=== PATIENT | female | born 1995 | race African-American/Black ===

== ENCOUNTER 2022-06-26 18:12 | Emergency (ER) | payer OTHER ==
[~2022-06-26] VITALS: Ht 170.2 cm; Wt 77.1 kg
[2022-06-26 18:30] VITALS: BP 152/92; TEMP 98.6
== END 2022-06-26 19:10 | disposition left against medical advice (07) ==
LOC: ED 18:12
DX: S09.8XXA Other specified injuries of head, initial encounter (principal); S19.89XA Other specified injuries of other specified part of neck, initial encounter; X58.XXXA Exposure to other specified factors, initial encounter; Y92.89 Other specified places as the place of occurrence of the external cause; Z53.21 Procedure and treatment not carried out due to patient leaving prior to being seen by health care provider
CPT/HCPCS: 99282

== ENCOUNTER 2022-06-28 09:54 | Emergency (ER) | payer OTHER ==
[~2022-06-28] VITALS: Ht 170.2 cm; Wt 77.1 kg
[2022-06-28 10:00] VITALS: BP 127/89; TEMP 98.6
== END 2022-06-28 11:00 | disposition left against medical advice (07) ==
LOC: ED 09:54
DX: S09.8XXD Other specified injuries of head, subsequent encounter (principal); S19.89 Other specified injuries of other specified part of neck; X58.XXXD Exposure to other specified factors, subsequent encounter; Y92.89 Other specified places as the place of occurrence of the external cause; Z53.29 Procedure and treatment not carried out because of patient's decision for other reasons
CPT/HCPCS: 99281